=== PATIENT | male | born 1990 | race Caucasian/White ===

== ENCOUNTER 2022-02-27 07:58 | Day surgery (SDC) | payer BC ==
[~2022-02-27 07:58] MED LIST: Lactated Ringers 1,000 ML IV SCH; Propofol 200 MG/20 ML SDV ONE
[2022-02-27] MEDS ORDERED: Lactated Ringers 1,000 ML IV SCH (10:00)
[2022-02-27 10:28] VITALS: BP 117/69; PULSE 73
== END 2022-02-27 10:30 | disposition home or self-care (01) ==
LOC: MW.SDS 07:58
PROVIDERS: ATTEND Surgery
DX: Z12.11 Encounter for screening for malignant neoplasm of colon (principal); F41.9 Anxiety disorder, unspecified; F17.210 Nicotine dependence, cigarettes, uncomplicated; Z80.0 Family history of malignant neoplasm of digestive organs; Z98.890 Other specified postprocedural states; Z79.899 Other long term (current) drug therapy
CPT/HCPCS: 45378; J2704; J7120

== ENCOUNTER 2024-12-25 21:18 | Emergency (ER) | payer BC ==
[2024-12-25] MEDS: diphenhydrAMINE 50 MG/ML SDV IVPUSH ONE (23:33)
[2024-12-25] MEDS: Prochlorperazine 10 MG/2 ML SDV IVPUSH ONE (23:34)
[2024-12-26 01:07] VITALS: BP 128/78; PULSE 84
== END 2024-12-26 01:07 | disposition home or self-care (01) ==
LOC: MW.ED 21:18
DX: R51.9 Headache, unspecified (principal); Z79.899 Other long term (current) drug therapy
CPT/HCPCS: 70450; 96361; 96374; 96375; 99284; J0780; J1200; J7030; 99283